=== PATIENT | male | born 1955 | race Caucasian/White ===

== ENCOUNTER → 2017-11-10 14:16 | Outpatient (CLI) | payer OTHER, SELFPAY ==
--- NOTE | 2017-11-10 | DI.RAD.S_ITS ---
PROCEDURE: XR CHEST 2V INDICATIONS: INCREASED RT VENTRICULAR CAPTURE THRESHOLD TECHNIQUE: 2 views of the chest were acquired. COMPARISON: None. FINDINGS: Surgical changes and devices: None. Lungs and pleura: There is right hemidiaphragm eventration. Left basilar opacities likely atelectasis. Lungs are otherwise clear. No pleural effusions or pneumothorax. Mediastinum: Mediastinal contours are normal. Heart size is normal. Bones and chest wall: No suspicious bony abnormalities. Soft tissues appear unremarkable. IMPRESSION: No acute cardiopulmonary disease. Dictated by: Pao Wayne M.D. on 11/10/2017 at 16:53 Approved by: Pao Wayne M.D. on 11/10/2017 at 16:54
== END ==
PROVIDERS: Visit Provider Internal Medicine Cardiovascular Disease
DX: T82.110A Breakdown (mechanical) of cardiac electrode, initial encounter (principal)
CPT/HCPCS: 71046

== ENCOUNTER → 2018-01-19 09:00 | Outpatient (CLI) | payer OTHER, SELFPAY ==
[2018-01-19 10:22] LABS: Cortisol AM (Before 10AM) 13.4 ug/dL (4.46-22.7)
== END ==
PROVIDERS: Family Provider Family Medicine; Visit Provider Internal Medicine Endocrinology, Diabetes & Metabolism
DX: D49.7 Neoplasm of unspecified behavior of endocrine glands and other parts of nervous system (principal); R53.83 Other fatigue; R53.1 Weakness
CPT/HCPCS: 36415; 82533; 84146

== ENCOUNTER → 2018-08-12 08:45 | Outpatient (CLI) | payer OTHER, SELFPAY ==
[2018-08-12 09:23] LABS: Add Manual Diff / Slide Review NO; Basophils Absolute Auto 0 /uL (0-100); Basophils Percent Auto 0.3 % (0-2); Eosinophils Absolute Auto 200 /uL (0-450); Eosinophils Percent Auto 1.9 % (2-4); Hematocrit 48.9 % (41-53); Hemoglobin 16.4 g/dL (13.5-17.5); Lymphocytes Absolute Auto 1900 /uL (1100-4500); Lymphocytes Percent Auto 23.5 % (25-40); Mean Corpuscular HGB Conc 33.6 % (30-36); Mean Corpuscular Hemoglobin 29.4 PG (26-34); Mean Corpuscular Volume 87.6 fL (80-100); Monocytes Absolute Auto 700 /uL (0-900); Monocytes Percent Auto 8.7 % (3-14); Neutrophils Absolute Auto 5400 /uL (1500-7000); Neutrophils Percent Auto 65.6 % (50-75); Platelet Count 369 X10^3/uL (150-400); Red Blood Cell Count 5.58 X10^6/uL (4.5-5.9); Red Cell Distribution Width 13.7 % (11.6-14.8); White Blood Cell Count 8.2 X10^3/uL (4.5-11.0)
[2018-08-12 09:42] LABS: Alanine Aminotransferase 19 IU/L (21-72); Albumin 4.5 g/dL (3.5-5.0); Albumin Globulin Ratio 1.3 (1.0-2.8); Alkaline Phosphatase 55 U/L (38-126); Aspartate Aminotransferase 30 IU/L (17-59); BUN Creatinine Ratio 15.6 (6-22); Bilirubin Total 0.5 mg/dL (0.2-1.3); Blood Urea Nitrogen 14 mg/dL (9-20); Calcium 9.3 mg/dL (8.4-10.2); Carbon Dioxide 28 mmol/L (22-32); Chloride 101 mmol/L (98-107); Estimated Glomerular Filt Rate > 60.0 mL/min (>60); Globulin 3.4 g/dL (1.7-4.1); Glucose 101 mg/dL (80-110); HEMOLYSIS < 15 (0-50); Potassium 4.4 mmol/L (3.4-5.1); Sodium 139 mmol/L (137-145); Total Protein 7.9 g/dL (6.3-8.2)
[2018-08-12 09:59] LABS: Prolactin 33.1 ng/mL (3.7-17.9)
[2018-08-12 10:00] LABS: Free T4, Direct Thyroxine 0.87 ng/dL (0.78-2.19)
[2018-08-12 10:13] LABS: Cortisol AM (Before 10AM) 8.36 ug/dL (4.46-22.7)
[2018-08-14 16:06] LABS: PSA, Total 0.6 ng/mL (< 4.1)
== END ==
PROVIDERS: Family Provider Family Medicine; Visit Provider Internal Medicine Endocrinology, Diabetes & Metabolism
DX: E29.1 Testicular hypofunction (principal); D35.2 Benign neoplasm of pituitary gland; D49.7 Neoplasm of unspecified behavior of endocrine glands and other parts of nervous system
CPT/HCPCS: 36415; 80053; 82533; 84146; 84153; 84154; 84439; 85025

== ENCOUNTER → 2018-12-02 10:33 | Outpatient (CLI) | payer OTHER, SELFPAY ==
[2018-12-02 11:53] LABS: BUN Creatinine Ratio 16.7 (6-22); Blood Urea Nitrogen 15 mg/dL (9-20); Calcium 9.6 mg/dL (8.4-10.2); Carbon Dioxide 29 mmol/L (22-32); Chloride 103 mmol/L (98-107); Estimated Glomerular Filt Rate > 60.0 mL/min (>60); Glucose 93 mg/dL (80-110); HEMOLYSIS < 15 (0-50); Potassium 5.2 mmol/L (3.4-5.1); Sodium 141 mmol/L (137-145)
== END ==
PROVIDERS: Visit Provider Physician Assistant
DX: I42.9 Cardiomyopathy, unspecified (principal)
CPT/HCPCS: 36415; 80048

== ENCOUNTER → 2019-12-27 09:07 | Outpatient (CLI) | payer OTHER, SELFPAY ==
[2019-12-27 11:17] LABS: Cortisol AM (Before 10AM) 8.13 ug/dL (4.46-22.7)
[2019-12-27 11:20] LABS: Testosterone 304 ng/dL (71.8-623)
== END ==
PROVIDERS: PCP Family Medicine; Referring Provider Internal Medicine Endocrinology, Diabetes & Metabolism; Visit Provider Internal Medicine Endocrinology, Diabetes & Metabolism
DX: E03.9 Hypothyroidism, unspecified (principal); D35.2 Benign neoplasm of pituitary gland
CPT/HCPCS: 36415; 82533; 84403

== ENCOUNTER 2020-06-20 08:56 | Emergency (ER) | payer OTHER, SELFPAY ==
[2020-06-20 09:05] VITALS: BP 157/84; PULSE 66; RESP 18; TEMP 36.6; O2SAT 96; BMI 31.8
--- NOTE | 2020-06-20 09:07 | DI.RAD.S_ITS ---
PROCEDURE: XR CHEST 1V INDICATIONS: chest pain TECHNIQUE: One view of the chest was acquired. COMPARISON: [facility], CR, XR CHEST 2V, 11/10/2017, 13:58. FINDINGS: Surgical changes and devices: Left-sided Lungs and pleura: Lungs are clear. No pleural effusions or pneumothorax. Mediastinum: Mediastinal contours appear normal. Heart size is pacer. Enlarged. Bones and chest wall: No suspicious bony lesions. Overlying soft tissues appear unremarkable. IMPRESSION: Cardiomegaly. No acute process. Dictated by: Florence Barron M.D. on 06/20/2020 at 9:33 Approved by: Florence Barron M.D. on 06/20/2020 at 9:33
--- NOTE | 2020-06-20 09:16 | ED.CHESTPAIN ---
HPI - Chest Pain General Chief Complaint: Chest Pain Stated Complaint: Pacemaker hx/left shoulder/neck constant pain x2 d Time Seen by Provider: 06/20/20 09:03 Source: patient Mode of arrival: Ambulatory Limitations: no limitations History of Present Illness HPI narrative: Patient is a 65-year-old male with history of atrial fibrillation, sick sinus syndrome is an AV pacemaker presenting today with left sided neck and shoulder pain. 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 Pain is not reproducible with arm movement. No association with exertion. He really does not have any chest pain shortness of breath or nausea. He took Tylenol and pain went away. He went to the [facility] last evening to ask how he could tell the difference between a heart attack and musculoskeletal pain. They did an EKG recommended he be transferred off the [place] to the emergency department at which point he declined. He came over by very today for evaluation. He has had no recurrence of pain and is here for evaluation Duration: now resolved Onset: during rest Pain location: other (Left trapezius) Quality: aching Relieving factors: nothing Exacerbating factors: nothing Related Data Home Medications Medication Instructions Recorded Confirmed cabergoline 0.5 mg PO #0 04/01/16 12/02/18 levothyroxine 0.1 mg #0 04/01/16 12/02/18 testosterone [AndroGel] #0 04/01/16 12/02/18 Resmed Aircurve 10 BIPAP #1 ea 12/02/18 12/02/18 carvedilol 3.125 mg tablet 3.125 mg PO BID 12/02/18 12/02/18 lisinopril 2.5 mg tablet 2.5 mg PO DAILY 12/02/18 12/02/18 Allergies Allergy/AdvReac Type Severity Reaction Status Date / Time No Known Drug Allergies Allergy Verified 06/20/20 09:10 Review of Systems Review of Systems ROS Unobtainable: All systems reviewed & are unremarkable except as noted in HPI and below Constitutional Constitutional: Denies chills, Denies fever(s), Denies lethargy and Denies weakness ENT Ears, Nose, Mouth, and Throat: Denies change in voice, Denies neck pain and Denies sore throat Cardiovascular Cardiovascular: Denies chest pain, Denies irregular heart rhythm, Denies lightheadedness, Denies palpitations, Denies dyspnea, Denies dyspnea on exertion and Denies orthopnea Respiratory Respiratory: Denies cough, Denies dyspnea, Denies dyspnea on exertion and Denies wheezing Gastrointestinal Gastrointestinal: Denies abdominal pain, Denies change in bowel habits, Denies diarrhea, Denies nausea and Denies vomiting Musculoskeletal Musculoskeletal: Reports as per HPI, Reports back pain and Denies neck pain Integumentary/Breasts Skin/Breast: Denies pruritus, Denies erythema, Denies rash and Denies wounds Neurologic Neurologic: Denies confusion, Denies localized weakness, Denies memory loss and Denies weakness Psychiatric Psychiatric: Denies confusion and Denies memory loss Endocrine Endocrine: Denies palpitations Allergic/Immunologic Allergic/Immunologic: Denies wheezing Patient History Medical History Atrial fibrillation Sick sinus syndrome Social History Smoking Status: Never smoker alcohol intake: current Smoking Status: Never smoker Exam Initial Vital Signs Initial Vital Signs: Vital Signs Temperature 97.8 F 06/20/20 09:05 Pulse Rate 66 06/20/20 09:05 Respiratory Rate 18 06/20/20 09:05 Blood Pressure 157/84 H 06/20/20 09:05 Pulse Oximetry 96 06/20/20 09:05 GENERAL: Alert pleasant 65-year-old male and in no acute distress. HEENT: Head atraumatic,EOMI, pupils reactive, face symmetric, moist mucous membranes NECK: Pain along trapezius Linda. Ears his scapula but inferior in the neck 1 particular area reproducible CARDIOVASCULAR: Regular rate and rhythm without murmurs, rubs or gallops. RESPIRATORY: Breath sounds equal bilaterally, no wheezes rales or rhonchi. ABDOMEN: Soft, nontender. Normoactive bowel sounds all 4 quadrants. No guarding or rebound. EXTREMITIES: Normal range of motion, no clubbing or edema. Neurovascularly intact NEUROLOGICAL: Alert and oriented x4.Normal gait and speech. Cranial nerves II through XII grossly intact. SKIN: Warm, dry, no laceration, no petechiae, no rashes or lesions. Scores HEART Score Heart Score history: Slightly Suspicious Heart Score EKG: Normal Heart Score Age: 45-64 years old Heart Score risk factors: 1-2 risk factors Heart Score troponin: < or = to normal limit Heart Score Total: 2 Course Orders Ordered: ED Orders 06/20/20 09:07 XR chest 1V Stat Complete Blood Count AUTO DIFF Stat Comprehensive Metabolic Panel Stat Lipase Stat Partial Thromboplastin Time Stat Prothrombin Time INR Stat Troponin & CK Cardiac Panel Stat Vital Signs Vital signs: Vital Signs - 8 hr 06/20/20 09:05 06/20/20 09:26 06/20/20 09:30 Temperature 97.8 F Pulse Rate 66 61 60 Respiratory Rate 18 34 H 21 Blood Pressure 157/84 H 130/77 Pulse Oximetry 96 96 95 06/20/20 10:00 Temperature Pulse Rate 60 Respiratory Rate 22 Blood Pressure 119/75 Pulse Oximetry 97 MDM - Chest Pain Lab Data Attestation: I reviewed the patient's lab results. Result diagrams: 06/20/20 09:04 06/20/20 09:04 Labs: Lab Results 06/20/20 06/20/20 06/20/20 Range/Units 09:04 09:04 09:04 WBC 7.7 (4.5-11.0) X10^3/uL RBC 5.21 (4.5-5.9) X10^6/uL Hgb 15.2 (13.5-17.5) g/dL Hct 46.0 (41-53) % MCV 88.4 (80-100) fL MCH 29.3 (26-34) PG MCHC 33.1 (30-36) % RDW 13.9 (11.6-14.8) % Plt Count 298 (150-400) X10^3/uL Neut % (Auto) 61.7 (50-75) % Lymph % (Auto) 25.9 (25-40) % [place] % (Auto) 9.6 (3-14) % Eos % (Auto) 2.5 (2-4) % Baso % (Auto) 0.3 (0-2) % Neut # (Auto) 4800 (1056-9995) /uL Lymph # (Auto) 2000 (9182-9084) /uL [place] # (Auto) 700 (0-900) /uL Eos # (Auto) 200 (0-450) /uL Baso # (Auto) 0 (0-100) /uL PT 12.7 (10.1-12.7) SECONDS INR 1.1 (0.9-1.3) APTT 32 (26.4-36.2) SECONDS Sodium 140 (137-145) mmol/L Potassium 4.4 (3.4-5.1) mmol/L Chloride 105 (98-107) mmol/L Carbon Dioxide 30 (22-32) mmol/L BUN 13 (9-20) mg/dL Creatinine 0.83 (0.66-1.25) mg/dL Estimated GFR > 60.0 (>60) mL/min BUN/Creatinine Ratio 15.7 (6-22) Glucose 101 (80-110) mg/dL Calcium 9.7 (8.4-10.2) mg/dL Total Bilirubin 0.5 (0.2-1.3) mg/dL AST 32 (17-59) IU/L ALT 26 (<50) IU/L Alkaline Phosphatase 46 (38-126) U/L Total Creatine Kinase 80 (55-170) U/L CK-MB (CK-2) TNP CK-MB (CK-2) Rel Index TNP Troponin I < 0.012 (0.01-0.034) ng/mL Total Protein 8.0 (6.3-8.2) g/dL Albumin 4.5 (3.5-5.0) g/dL Globulin 3.5 (1.7-4.1) g/dL Albumin/Globulin Ratio 1.3 (1.0-2.8) Lipase 70 (23-300) U/L Imaging Data Chest x-ray: Radiologist's Impression: PROCEDURE: XR CHEST 1V INDICATIONS: chest pain TECHNIQUE: One view of the chest was acquired. COMPARISON: [facility], CR, XR CHEST 2V, 11/10/2017, 13:58. FINDINGS: Surgical changes and devices: Left-sided Lungs and pleura: Lungs are clear. No pleural effusions or pneumothorax. Mediastinum: Mediastinal contours appear normal. Heart size is pacer. Enlarged. Bones and chest wall: No suspicious bony lesions. Overlying soft tissues appear unremarkable. IMPRESSION: Cardiomegaly. No acute process. Dictated by: Florence Barron M.D. on 06/20/2020 at 9:33 ECG Data Attestation: I personally reviewed and interpreted this ECG as follows: Interpretation: Paced rhythm rate 72 p.r. interval [address] changes MDM Narrative Medical decision making narrative: Patient's pain is reproducible and relieved with Tylenol it and is in the back. This seems to be more musculoskeletal rather than cardiac related. He has had no syncopal episode or chest pain. We did attempt a pacemaker interrogation however was unsuccessful but I do not have high suspicion that this is a pacemaker malfunction. Blood work is overall reassuring. Pain feels better with light massage by myself. He had no recurrence of pain in the emergency department. He actually has a sleep study that he would like to get to. Discharge Plan Departure Patient Disposition: Home Clinical Impression: Muscle spasm, Atypical chest pain Instructions: DI for Atypical Chest Pain, DI for Muscle Spasm Activity Restrictions/Additional Instructions: *You have been diagnosed with muscle spasm, atypical chest pain *What to do: At this time her pain seems to be musculoskeletal. I recommend heating pad and massage. You may require further heart testing. Her pacemaker was not interrogated today I do not suspect any pacemaker malfunction. He may require further cardiac testing her primary care provider *Continue to take medications as directed *Follow up with your primary care provider in 2-3 days *Return to ER if you should have worsening chest pain, shortness of breath, nausea, increase left arm pain or any new, worsening or concerning symptoms Prescriptions: No Action levothyroxine 100 MCG tablet 0.1 mg Qty: 0 RF: 0 cabergoline 0.5 MG tablet 0.5 mg PO Qty: 0 RF: 0 testosterone [AndroGel] 1.25 GM gel in packet Qty: 0 RF: 0 lisinopril 2.5 mg tablet 2.5 mg PO DAILY RF: 0 carvedilol 3.125 mg tablet 3.125 mg PO BID RF: 0 (DME) Resmed Aircurve 10 BIPAP Qty: 1 RF: 0 Referrals: Leonrad Mar MD [Primary Care Provider] -
[2020-06-20 09:22] LABS: Add Manual Diff / Slide Review NO; Basophils Absolute Auto 0 /uL (0-100); Basophils Percent Auto 0.3 % (0-2); Eosinophils Absolute Auto 200 /uL (0-450); Eosinophils Percent Auto 2.5 % (2-4); Hemoglobin 15.2 g/dL (13.5-17.5); Lymphocytes Absolute Auto 2000 /uL (1100-4500); Lymphocytes Percent Auto 25.9 % (25-40); Mean Corpuscular HGB Conc 33.1 % (30-36); Mean Corpuscular Hemoglobin 29.3 PG (26-34); Mean Corpuscular Volume 88.4 fL (80-100); Monocytes Absolute Auto 700 /uL (0-900); Monocytes Percent Auto 9.6 % (3-14); Neutrophils Absolute Auto 4800 /uL (1500-7000); Neutrophils Percent Auto 61.7 % (50-75); Platelet Count 298 X10^3/uL (150-400); Red Blood Cell Count 5.21 X10^6/uL (4.5-5.9); Red Cell Distribution Width 13.9 % (11.6-14.8); White Blood Cell Count 7.7 X10^3/uL (4.5-11.0)
[2020-06-20 09:26] VITALS: PULSE 61; RESP 34; O2SAT 96
--- NOTE | 2020-06-20 09:28 | PC.NURSE ---
pt c/o left shoulder pain, started a few days ago. pain goes into his back. pt concerned about pain and two days ago submitted a recording of his pacemaker. pt has a [employer] pacemaker, copy of pt's identification card obtained.
[2020-06-20 09:29] LABS: INR 1.1 (0.9-1.3); Prothrombin Time 12.7 SECONDS (10.1-12.7)
[2020-06-20 09:30] VITALS: BP 130/77; PULSE 60; RESP 21; O2SAT 95
[2020-06-20 09:32] LABS: PTT Partial Thromboplastin Tim 32 SECONDS (26.4-36.2)
[2020-06-20 09:33] LABS: Alanine Aminotransferase 26 IU/L (<50); Albumin 4.5 g/dL (3.5-5.0); Albumin Globulin Ratio 1.3 (1.0-2.8); Alkaline Phosphatase 46 U/L (38-126); Aspartate Aminotransferase 32 IU/L (17-59); BUN Creatinine Ratio 15.7 (6-22); Bilirubin Total 0.5 mg/dL (0.2-1.3); Blood Urea Nitrogen 13 mg/dL (9-20); Calcium 9.7 mg/dL (8.4-10.2); Carbon Dioxide 30 mmol/L (22-32); Chloride 105 mmol/L (98-107); Creatine Kinase 80 U/L (55-170); Estimated Glomerular Filt Rate > 60.0 mL/min (>60); Globulin 3.5 g/dL (1.7-4.1); Glucose 101 mg/dL (80-110); HEMOLYSIS 28 (0-50); Lipase 70 U/L (23-300); Potassium 4.4 mmol/L (3.4-5.1); Sodium 140 mmol/L (137-145)
[2020-06-20 09:45] LABS: Troponin I < 0.012 ng/mL (0.01-0.034)
[2020-06-20 10:00] VITALS: BP 119/75; PULSE 60; RESP 22; O2SAT 97
== END 2020-06-20 10:22 | disposition home or self-care (01) ==
PROVIDERS: Emergency Provider Emergency Medicine; PCP Family Medicine
DX: R07.89 Other chest pain (principal); M62.838 Other muscle spasm; M25.512 Pain in left shoulder; Z95.0 Presence of cardiac pacemaker; I48.91 Unspecified atrial fibrillation
CPT/HCPCS: 36415; 71045; 80053; 82550; 83690; 84484; 85025; 85610; 85730; 93005; 99281; 99284

== ENCOUNTER → 2021-03-15 08:33 | Outpatient (CLI) | payer OTHER, SELFPAY ==
[2021-03-15 20:44] LABS: Cortisol AM (Before 10AM) 8.92 ug/dL (4.46-22.7)
== END ==
PROVIDERS: PCP Family Medicine; Visit Provider Internal Medicine Endocrinology, Diabetes & Metabolism
DX: D35.2 Benign neoplasm of pituitary gland (principal)
CPT/HCPCS: 82533